=== PATIENT | female | born 1995 | race African-American/Black ===

== ENCOUNTER 2021-11-13 17:42 | Emergency (ER) | payer MEDICAID ==
[~2021-11-13] VITALS: Ht 157.5 cm; Wt 75.0 kg
[~2021-11-13 17:42] MED LIST: ALBU05
[2021-11-13] MEDS ORDERED: KETOROLAC 60MG/2ML VIAL IM STA (23:33)
[2021-11-14 00:02] LABS: BASOPHILS % 0.5 % (0.0-2.0); EOSINOPHILS % 0.6 % (0.0-5.0); HEMATOCRIT. 33.6 % (36.0-48.0); HEMOGLOBIN. 11.5 g/dL (12.0-16.0); LYMPHOCYTES % 34.6 % (20.0-50.0); MEAN CORPUSCULAR HEMOGLOBIN 29.1 pg (28.0-32.0); MEAN CORPUSCULAR VOLUME 85.5 fL (81.0-99.0); MEAN PLATELET VOLUME 8.1 fl (7.4-10.4); MONOCYTES % 6.2 % (2.0-8.0); NEUTROPHILS % 58.1 % (40.0-76.0); PLATELET 229 x1000/uL (130-400); RED BLOOD CELL COUNT 3.94 mill/uL (4.2-5.4)
[2021-11-14 00:03] LABS: CHLORIDE 106 mEq/L (98-107)
[2021-11-14] MEDS ORDERED: SODIUM CHLORIDE 0.9% 1,000 ML IV ONE (00:45)
[2021-11-14] MEDS ORDERED: HYDROCODONE/ACETAMINOPHEN 5/325MG TABLET PO ONE (00:45)
[2021-11-14 01:01] VITALS: BP 123/66
[2021-11-14] MEDS ORDERED: IOHEXOL-350 100 ML BOTTLE ONE (01:59)
[2021-11-14] MEDS ORDERED: BACL-141 MT (03:07)
[2021-11-14] MEDS ORDERED: NAPR-1176 MT (03:07)
== END 2021-11-14 03:14 | disposition home or self-care (01) ==
LOC: ER 17:42
DX: R07.89 Other chest pain (principal); R79.1 Abnormal coagulation profile
CPT/HCPCS: 36415; 71045; 71275; 80053; 84484; 85025; 85379; 96360; 96361; 96372; 99285; J1885; Q9967